=== PATIENT | male | born 1980 | race African-American/Black ===

== ENCOUNTER 2019-10-09 23:21 | Emergency (ER) | payer MEDICAID, OTHER ==
[~2019-10-09] VITALS: Ht 190.5 cm; Wt 126.0 kg
[2019-10-10] MEDS ORDERED: BACITRACIN ZINC OINT UDPKT TOP ONE (05:15)
[2019-10-10] MEDS ORDERED: LIDOCAINE HCL/PF 1% 10 MG/ML 5ML VIAL IJ ONE (05:15)
[2019-10-10] MEDS ORDERED: IBUPROFEN 600MG TABLET PO ONE (06:45)
[2019-10-10] MEDS ORDERED: TETANUS, DIPHTHERIA, PERTUSSIS VAC/PF 0.5ML (>7YR OLD) IM ONE (06:45)
[2019-10-10 07:00] VITALS: BP 128/87
== END 2019-10-10 07:37 | disposition home or self-care (01) ==
LOC: ER 23:21 → EDBD 23:21 → ER 10-10 07:37
DX: S61.215A Laceration without foreign body of left ring finger without damage to nail, initial encounter (principal); S61.213A Laceration without foreign body of left middle finger without damage to nail, initial encounter; W25.XXXA Contact with sharp glass, initial encounter; Y93.89 Activity, other specified; Y92.810 Car as the place of occurrence of the external cause
CPT/HCPCS: 12001; 73140; 90471; 90715; 99283; J3490; Z7610